=== PATIENT | female | born 1955 | race Caucasian/White ===

== ENCOUNTER 2023-04-06 23:25 | Emergency (ER) | payer MEDICARE ==
[2023-04-07] MEDS ORDERED: Cephalexin 250 MG Cap PO ONE
[2023-04-07] MEDS ORDERED: Cephalexin 250 MG Cap ONE (00:03)
== END 2023-04-07 00:21 | disposition home or self-care (01) ==
LOC: KA.ED 23:25
DX: L03.115 Cellulitis of right lower limb (principal); I12.9 Hypertensive chronic kidney disease with stage 1 through stage 4 chronic kidney disease, or unspecified chronic kidney disease; N18.30 Chronic kidney disease, stage 3 unspecified; Z88.1 Allergy status to other antibiotic agents; Z88.8 Allergy status to other drugs, medicaments and biological substances; Z91.041 Radiographic dye allergy status; Z91.048 Other nonmedicinal substance allergy status
CPT/HCPCS: 99283; 99284; A9270-GY